=== PATIENT | male | born 1985 | race African-American/Black ===

== ENCOUNTER 2021-04-28 07:13 | Emergency (ER) | payer MEDICARE ==
[~2021-04-28] VITALS: Ht 175.3 cm; Wt 91.0 kg
[2021-04-28 08:14] LABS: EOSINOPHILS % 1.7 % (0.0-5.0); HEMATOCRIT. 37.4 % (42.0-52.0); HEMOGLOBIN. 12.6 g/dL (14.0-18.0); LYMPHOCYTES % 33.2 % (20.0-50.0); MEAN CORPUSCULAR VOLUME 82.9 fL (80.0-94.0); MEAN PLATELET VOLUME 9.5 fl (7.4-10.4); MONOCYTES % 12.1 % (2.0-8.0); PLATELET 212 x1000/uL (130-400); RED BLOOD CELL COUNT 4.52 mill/uL (4.7-6.1); RED CELL DISTRIBUTION WIDTH 12.5 % (11.6-14.6)
[2021-04-28 08:20] LABS: CHLORIDE 97 mEq/L (98-107)
[2021-04-28 08:24] LABS: ETHANOL BLOOD < 10 mg/dL
[2021-04-28 08:46] LABS: CLARITY URINE CLEAR (CLEAR); COLOR URINE YELLOW (YELLOW); KETONES URINE NEGATIVE (NEGATIVE); LEUKOCYTE ESTERASE URINE NEGATIVE (NEGATIVE); NITRITE URINE NEGATIVE (NEGATIVE); OCCULT BLOOD URINE NEGATIVE (NEGATIVE); PROTEIN URINE NEGATIVE (NEGATIVE); SPECIFIC GRAVITY URINE 1.003 (1.005-1.030); UROBILINOGEN URINE 0.2 E.U./dL (0.2-1.0)
[2021-04-28 09:07] LABS: *AMPHETAMINES SCREEN URINE NEGATIVE (NEGATIVE); *BARBITURATES SCREEN URINE NEGATIVE (NEGATIVE); *BENZODIAZEPINES SCREEN URINE NEGATIVE (NEGATIVE); *COCAINE SCREEN URINE NEGATIVE (NEGATIVE); METHADONE URINE SCREEN NEGATIVE (NEGATIVE); OPIATES URINE SCREEN NEGATIVE (NEGATIVE)
[2021-04-28 09:08] LABS: CANNABINOID URINE SCREEN NEGATIVE (NEGATIVE); PHENCYCLIDINE URINE SCREEN NEGATIVE (NEGATIVE)
[2021-04-28 09:13] LABS: CREATINE KINASE 652 IU/L (39-308)
[2021-04-28] MEDS ORDERED: OLANZAPINE 10 MG/VIAL IM SCH (15:30)
[2021-04-29 04:56] VITALS: BP 127/78
[2021-04-29] MEDS ORDERED: BUPROPION HCL 150MG SR TABLET PO ONE (06:45)
[2021-05-03] MEDS ORDERED: ACET-2708 MT (12:14)
[2021-05-03] MEDS ORDERED: IBUP-2028 MT (12:14)
[2021-05-03] MEDS ORDERED: NAPR-1176 MT (12:15)
== END 2021-04-29 07:12 | disposition home or self-care (01) ==
LOC: ER 07:18
DX: R25.2 Cramp and spasm (principal); Z13.9 Encounter for screening, unspecified; Z20.822 Contact with and (suspected) exposure to COVID-19
CPT/HCPCS: 36415; 71045; 80053; 80305; 80320; 81003; 82550; 82962; 85025; 96372; 99285; C9803; J3490; U0003; U0005; G0480

== ENCOUNTER 2022-02-17 23:37 | Emergency (ER) | payer SELFPAY ==
[~2022-02-17] VITALS: Ht 180.3 cm; Wt 104.2 kg
[~2022-02-17 23:37] MED LIST: NAPR-1176 MT
[2022-02-18] VITALS: BP 134/94
[2022-02-18 00:37] LABS: CLARITY URINE CLEAR (CLEAR); COLOR URINE YELLOW (YELLOW); KETONES URINE 1+ (NEGATIVE); LEUKOCYTE ESTERASE URINE NEGATIVE (NEGATIVE); NITRITE URINE NEGATIVE (NEGATIVE); OCCULT BLOOD URINE NEGATIVE (NEGATIVE); PROTEIN URINE NEGATIVE (NEGATIVE)
[2022-02-18 00:48] LABS: *AMPHETAMINES SCREEN URINE NEGATIVE (NEGATIVE); *BARBITURATES SCREEN URINE NEGATIVE (NEGATIVE); *BENZODIAZEPINES SCREEN URINE NEGATIVE (NEGATIVE); *COCAINE SCREEN URINE NEGATIVE (NEGATIVE); CANNABINOID URINE SCREEN PRESUMTIVE POSITIVE (NEGATIVE); METHADONE URINE SCREEN NEGATIVE (NEGATIVE); OPIATES URINE SCREEN NEGATIVE (NEGATIVE); PHENCYCLIDINE URINE SCREEN NEGATIVE (NEGATIVE)
== END 2022-02-18 00:45 | disposition home or self-care (01) ==
LOC: ER 23:37
DX: Z76.0 Encounter for issue of repeat prescription (principal); F12.10 Cannabis abuse, uncomplicated; F41.9 Anxiety disorder, unspecified; F20.9 Schizophrenia, unspecified; Z91.14 Patient's other noncompliance with medication regimen
CPT/HCPCS: 80305; 81003; 99283

== ENCOUNTER 2024-12-21 02:28 | Emergency (ER) | payer MEDICAID ==
[~2024-12-21] VITALS: Ht 177.8 cm; Wt 97.0 kg
[2024-12-21 02:52] VITALS: BP 142/89; PULSE 94; RESP 18; TEMP 36.8; O2SAT 99
[2024-12-21] MEDS ORDERED: QUET300T5 MT (02:54)
[2024-12-21] MEDS ORDERED: BUPR300T52 MT (02:54)
[2024-12-21] MEDS ORDERED: MIRT45TA90 MT (02:54)
== END 2024-12-21 03:04 | disposition home or self-care (01) ==
LOC: ER 02:43
DX: Z76.0 Encounter for issue of repeat prescription (principal); F20.9 Schizophrenia, unspecified; F41.9 Anxiety disorder, unspecified; Z79.1 Long term (current) use of non-steroidal anti-inflammatories (NSAID); Z79.899 Other long term (current) drug therapy
CPT/HCPCS: 99281

== ENCOUNTER 2024-12-26 07:31 | Emergency (ER) | payer MEDICAID ==
[~2024-12-26] VITALS: Ht 177.8 cm; Wt 104.0 kg
[~2024-12-26 07:31] MED LIST changes: +BUPR300T52 MT; +MIRT45TA90 MT; +QUET300T5 MT
[2024-12-26 07:41] VITALS: O2SAT 100
[2024-12-26 07:43] VITALS: BP 146/73; PULSE 88; RESP 16; TEMP 36.7; O2SAT 100
[2024-12-26] MEDS ORDERED: QUET300T2 MT (07:54)
[2024-12-26] MEDS ORDERED: BUPR300T52 MT (07:54)
== END 2024-12-26 08:07 | disposition home or self-care (01) ==
LOC: ER 07:37
DX: Z76.0 Encounter for issue of repeat prescription (principal); G47.00 Insomnia, unspecified; F32.A Depression, unspecified; F41.9 Anxiety disorder, unspecified; F12.10 Cannabis abuse, uncomplicated; Z79.899 Other long term (current) drug therapy
CPT/HCPCS: 99281

== ENCOUNTER 2024-12-26 11:19 | Emergency (ER) | payer MEDICAID ==
[~2024-12-26] VITALS: Ht 177.8 cm; Wt 104.0 kg
[~2024-12-26 11:19] MED LIST changes: +QUET300T2 MT
[2024-12-26 11:22] VITALS: O2SAT 96
[2024-12-26 11:37] VITALS: BP 155/64; PULSE 87; RESP 18; TEMP 36.9; O2SAT 99
== END 2024-12-26 12:36 | disposition home or self-care (01) ==
LOC: ER 11:19
DX: Z00.00 Encounter for general adult medical examination without abnormal findings (principal); F12.10 Cannabis abuse, uncomplicated; F41.9 Anxiety disorder, unspecified; Z76.0 Encounter for issue of repeat prescription; Z79.899 Other long term (current) drug therapy; Z86.59 Personal history of other mental and behavioral disorders
CPT/HCPCS: 99281

== ENCOUNTER 2024-12-26 22:13 | Emergency (ER) | payer MEDICAID ==
[~2024-12-26] VITALS: Ht 177.8 cm; Wt 107.0 kg
[2024-12-26 22:24] VITALS: O2SAT 99
[2024-12-26 22:34] VITALS: BP 153/101; PULSE 79; RESP 18; TEMP 37.1; O2SAT 99
== END 2024-12-27 01:59 | disposition home or self-care (01) ==
LOC: ER 22:22
DX: M79.10 Myalgia, unspecified site (principal); F12.10 Cannabis abuse, uncomplicated; F41.9 Anxiety disorder, unspecified; Z79.899 Other long term (current) drug therapy; Z86.59 Personal history of other mental and behavioral disorders
CPT/HCPCS: 71045; 99283

== ENCOUNTER 2025-01-11 08:03 | Emergency (ER) | payer MEDICAID ==
[~2025-01-11] VITALS: Ht 177.8 cm; Wt 95.3 kg
[2025-01-11 08:12] VITALS: O2SAT 97
[2025-01-11 08:13] VITALS: BP 123/66; PULSE 72; RESP 18; TEMP 36.9; O2SAT 99
[2025-01-11] MEDS ORDERED: QUET300T2 MT (08:48)
[2025-01-11] MEDS ORDERED: BUPR300T52 MT (08:48)
== END 2025-01-11 09:20 | disposition home or self-care (01) ==
LOC: ER 08:03
DX: Z76.0 Encounter for issue of repeat prescription (principal); F20.9 Schizophrenia, unspecified; F41.9 Anxiety disorder, unspecified; Z59.86 Financial insecurity; Z79.1 Long term (current) use of non-steroidal anti-inflammatories (NSAID); Z79.899 Other long term (current) drug therapy
CPT/HCPCS: 99281

== ENCOUNTER 2025-01-19 22:12 | Emergency (ER) | payer MEDICAID ==
[~2025-01-19] VITALS: Ht 175.3 cm; Wt 80.0 kg
[2025-01-19 22:16] VITALS: BP 118/68; PULSE 97; RESP 16; TEMP 36.7; O2SAT 96; O2SAT 97
[2025-01-20] MEDS: ACETAMINOPHEN 325MG TABLET PO ONE (02:30)
[2025-01-20] MEDS ORDERED: LIDO700A15 TP (03:24)
[2025-01-20] MEDS ORDERED: NAPR-1176 MT (03:24)
[2025-01-20] MEDS ORDERED: KETOROLAC 15MG/ML VIAL IM ONE (04:30)
== END 2025-01-20 05:16 | disposition home or self-care (01) ==
LOC: ER 22:12
DX: R07.81 Pleurodynia (principal); F12.90 Cannabis use, unspecified, uncomplicated; F41.9 Anxiety disorder, unspecified; F20.9 Schizophrenia, unspecified; Z59.00 Homelessness unspecified; Z98.890 Other specified postprocedural states; Z79.899 Other long term (current) drug therapy; Z79.1 Long term (current) use of non-steroidal anti-inflammatories (NSAID)
CPT/HCPCS: 99283; 71045; Z7610; J1885